=== PATIENT | female | born 1980 | race Two or more races ===

== ENCOUNTER 2023-11-10 14:19 | Emergency (ER) | payer OTHER, SELFPAY ==
[2023-11-10 14:22] VITALS: BP 122/85
[2023-11-10 15:39] LABS: Urine Albumin Negative (Neg - Trace); Urine Bilirubin Negative (Negative); Urine Character Clear (Clear); Urine Color Yellow; Urine Glucose Negative (Negative); Urine Ketone Negative (Negative); Urine Leukocyte Trace (Negative); Urine Nitrite Negative (Negative); Urine Occult Blood Trace (Negative); Urine Urobilinogen Negative (Neg - 1+); Urine pH 6.5 (5.0-9.0)
[2023-11-10 15:44] LABS: HCG, Urine Qualitative Screen Negative
[2023-11-10 15:46] LABS: Urine Squamous Cell 0-2 /LPF (Few)
[2023-11-10 15:50] LABS: Urine Red Blood Cell 0-2 /HPF (0-2); Urine White Cell 0-2 /HPF (0-5)
--- NOTE | 2023-11-10 16:36 | ED.GENMED ---
History of Present Illness
General
Chief Complaint: Abdominal Pain
Source: patient
Exam Limitations: none
Time Seen by Provider: 11/10/23 15:32
Nursing documentation reviewed up to this point in time: agreed with
Travel History
Have you had any contact with someone who has COVID-19?: No
Do you have any symptoms of coronavirus? Fever > 100 degrees, chills, cough, shortness of breath, sore throat, loss of taste or smell, muscle aches, or headache?: No
History of Present Illness
History of Present Illness:
Patient is a 43-year female who presents to the ER with right lower quadrant pain which radiates to her back. She started with pressure in her lower back and lower abdomen in the beginning of October however symptoms have gotten more severe over the
past several days. She mentions that her last menstrual period was August 21. Prior to that she had normal periods but has not gotten a menstrual period since then. She took a self test at home which was negative. She does have a
history of multiple C-sections and tubal ligation. She denies any nausea vomiting fever chills.
She denies any urinary frequency urgency or dysuria
Past History
Past History
ED Past Medical History: Asthma and Other (Frequent UTIs, migraine headache, kidney stone); Negative HTN, Hypercholesterolemia or NIDDM
ED Past Surgical History: (X4) and Gynecological (Tubal ligation)
Social History
Tobacco: Smoker (Cigars)
Alcohol: Occasional
Personal:
Living: with family
Employment: Employed
Family History
Family History: Diabetes and Other (Grandparents with brain tumor)
Review of Systems
Review of Systems
Allergies reviewed?: Yes
All Other Systems: ROS reviewed and negative except as documented in HPI and ROS
Constitutional: Reports no symptoms; Denies fever, fatigue or chills
EENT: Reports no symptoms
Respiratory: Reports no symptoms
ABD/GI: Reports nausea and other (low abd pain ); Denies vomiting or diarrhea
: Reports no symptoms; Denies bleeding
Musculoskeletal: Reports back pain
Skin: Reports no symptoms
Neurological: Reports no symptoms
Psychiatric: Reports no symptoms
Phy Exam
General Physical Exam
General Presentation: no apparent distress
General age: appears stated age
General Skin: warm and dry
General Habitus: normal
General Mental: alert
General Hydration: appears well hydrated
Gastrointestinal Exam
Gastrointestinal Exam: soft and other (mild tenderness right lower pelvic region none tender to abdominal region )
Neurological Exam
Neurological Exam: alert and oriented x3
Musculoskeletal Exam
Musculoskeletal Exam: full ROM
Skin Exam
Skin Exam: normal color and warm/dry
Psychiatric Exam
Psychiatric Exam: normal mood/affect
Course
Orders/Labs/Results
Orders:
Orders
11/10/23 15:29
Test Result ONCE
11/10/23 15:33
HCG, Urine Qualitative Screen Urgent
Date Specimen was Collected: 11/10/23
Time Specimen was Collected: 15:29
Urinalysis Reflex To Culture Urgent
Date Specimen was Collected: 11/10/23
Time Specimen was Collected: 15:29
Urine Microscopic Reflex Cult Urgent
11/10/23 16:36
US Pelvis Only (non-obstetric) Urgent
Comment:
Reason For Exam: rlq pain
11/10/23 17:05
Complete Blood Count/With Diff Urgent
Comprehensive Metabolic Panel Urgent
11/10/23 17:11
Ondansetron Injectable [Zofran] 4 mg IV NOW STA
11/10/23 17:12
0.9% Sodium Chloride 1000 ml [Nss] 1,000 ml IV BOLUS
Abnormal Lab Results
11/10/23 11/10/23
15:33 17:05
Hct 36.9 L %
(37.0-47.0)
Chloride 108 H mmol/L
(98-107)
Ur Occult Blood Reflex Trace A
(Negative)
Leukocyte Esterase Rfl Trace A
(Negative)
11/10/23 17:05
11/10/23 17:05
Vital Signs
Initial and Last Documented VS:
Initial Vital Signs
Temp Pulse Resp BP Pulse Ox
98.8 F 77 20 122/85 100
11/10/23 14:22 11/10/23 14:22 11/10/23 14:22 11/10/23 14:22 11/10/23 14:22
Last Documented Vital Signs
Temp Pulse Resp BP Pulse Ox
98.8 F 61 20 105/60 100
11/10/23 14:22 11/10/23 18:22 11/10/23 14:22 11/10/23 18:22 11/10/23 18:22
Land Commissioner consulted with Physician
Land Commissioner consulted with physician?: Yes
Name of Physician Consulted: no
MDM/Problems Addressed
Differential Diagnosis Includes:
Not limited to ovarian cyst less likely torsion, less likely appendicitis
MDM/Problems Addressed:
Patient is a 43-year-old female who has had low back pain and lower abdominal pain since the beginning of October however for the past several days has increased. No fever chills nausea vomiting no UTI symptoms. She has not had a normal period since
July which has not typical for her. She has not been evaluated by [facility] for this. She is seen here at [facility]. She presents awake alert no acute distress mild pelvic tenderness on exam no guarding rebound. Pelvic ultrasound
shows 3.4 cm subserosal leiomyoma in the anterior uterine fundus and globular uterine morphology suspicious for uterine adenomyosis. hCG negative
Patient was given Toradol for symptoms feeling better.
Case reviewed with ED physician will DC with outpatient followed by gynecology
*Radiology
Radiology exam reviewed: radiology read reviewed (Ultrasound show: 3.4 cm subserosal leiomyoma in the anterior uterine fundus no evidence of abnormality in the ovaries globular uterine morphology suspicious for uterine adenomyosis)
*Pulse Oximetry
Patient hypoxic: no
*Critical Care Note
Total Time (30-74mins, 75-104mins- exclusive of procedures): Not Applicable
ED Attending Note
-
Portions of this chart may have been created with voice recognition software.� Occasional wrong word or��sound alike� substitutions may have occurred due to the inherent limitations of voice recognition software.
Discharge Plan
Departure
Patient Disposition: Home (Routine Discharge)
Date of Disposition: 11/10/23
Time of Disposition: 18:38
Patient with high blood pressure during this ER visit?: No
Condition: Fair
Covid-19: Not Applicable
Discharge Problem:
Pelvic pain
Instructions: Pelvic Pain (DC)
Prescriptions:
No Action
multivitamin [Daily Multivitamin] Tablet
1 tab PO DAILY
iron
1 tab PO DAILY
Referrals:
Marilyn Palmer MD [Active] -
Bryan Singh MD [Family Provider] -
Activity Restrictions/Additional Instructions:
Follow-up with gynecology for further reevaluation of ultrasound findings and for irregular period. Call tomorrow to make an appointment as soon as possible. You may take ibuprofen every 8 hours as needed. Return if any worsening of symptoms.
Interventions
Interventions:
*Risk Screen - Suicide Last Done: 11/10/23 15:31
*Neglect/Abuse Screening Last Done: 11/10/23 15:31
ZG-Fncenv-Zsqitiaqew Assessment Last Done: 11/10/23 15:31
[2023-11-10] MEDS: ZOFRAN 4 MG IV (17:14)
[2023-11-10] MEDS: NSS 1000 IV (17:15)
[2023-11-10 17:16] LABS: % Basophils 0.5 % (0-2); % Eosinophils 0.7 % (0-6); % Immature Granulocytes 0.4 % (0-0.5); % Lymphocytes 29.5 % (20.5-51.1); % Monocytes 5.9 % (1.7-9.3); Absolute Eosinophils 0.1 10^3/uL (0-0.7); Absolute Lymphocytes 2.4 10^3/uL (1.2-3.4); Absolute Monocytes 0.5 10^3/uL (0.1-0.6); Absolute Neutrophils 5.1 10^3/uL (1.4-6.5); Hematocrit 36.9 % (37.0-47.0); Hemoglobin 12.6 g/dL (12.0-16.0); Mean Corp Hgb Conc. 34.1 g/dL (33.0-37.0); Mean Platelet Volume 9.2 fL (7.4-10.4); Nucleated Red Blood Cells % 0 %; Platelet Count 271 10^3/uL (130-400); Red Cell Dist. Width 14.4 % (11.5-14.5)
[2023-11-10 17:28] LABS: ALT (SGPT) 16 U/L (0-35); AST (SGOT) 24 U/L (14-36); Albumin 4.4 g/dl (3.5-5.0); Alkaline Phosphatase 65 U/L (38-126); Blood Urea Nitrogen 12 mg/dl (7-17); Calcium 8.9 mg/dl (8.4-10.2); Carbon Dioxide 23 mmol/L (22-30); Chloride 108 mmol/L (98-107); Glucose 76 mg/dl (70-99); Potassium 4.1 mmol/L (3.5-5.1); Sodium 136 mmol/L (135-145); Total Bilirubin 0.3 mg/dl (0.2-1.3); Total Protein 7.3 g/dl (6.3-8.2); eGFR > 60.00
[2023-11-10 18:22] VITALS: BP 105/60
[2023-11-10 19:38] LABS: TSH Reflex To Free T4 1.08 uIU/ml (0.47-4.68)
== END 2023-11-10 18:58 | disposition home or self-care (01) ==
LOC: EMR 14:19
PROVIDERS: Nurse Practitioner; EMERGENCY PHYSICIAN Emergency Medicine; FAMILY PHYSICIAN Family Medicine
DX: R10.2 Pelvic and perineal pain (principal); R10.31 Right lower quadrant pain; D25.2 Subserosal leiomyoma of uterus; F17.290 Nicotine dependence, other tobacco product, uncomplicated
CPT/HCPCS: 99284; 96374; 96361; 76856; 80053; 81003; 81015; 81025; 84443; 85025